=== PATIENT | male | born 1955 | race Caucasian/White ===

== ENCOUNTER 2020-11-11 15:41 | Day surgery (SDC) | payer BC ==
[2020-11-12] MEDS ORDERED: Acetaminophen 500 MG TAB ONE (08:34)
[2020-11-12] MEDS ORDERED: diphenhydrAMINE 50 MG/ML VIAL ONE (08:34)
[2020-11-12] MEDS ORDERED: BAMLANIVIMAB 700 MG, ETESEVIMAB 700 MG/20 ML 1,400 MG in Sodium Chloride 0.9% 250 ML 25... IVPB SCH (09:30)
== END 2020-11-12 11:30 | disposition home or self-care (01) ==
LOC: CSHSDC/OP 15:41
PROVIDERS: ATTEND Family Medicine
DX: U07.1 COVID-19 (principal); Z23 Encounter for immunization
CPT/HCPCS: 96365; 96374; J1200; J7050